=== PATIENT | male | born 1945 | race African-American/Black ===

== ENCOUNTER → 2017-01-03 | Outpatient (CLI) | payer MEDICARE | END | disposition home or self-care (01) | LOC: PCVCCLINIC 09:25 | PROVIDERS: ATTEND Internal Medicine Cardiovascular Disease | DX: I21.19 ST elevation (STEMI) myocardial infarction involving other coronary artery of inferior wall (principal); I42.9 Cardiomyopathy, unspecified; I25.10 Atherosclerotic heart disease of native coronary artery without angina pectoris; E78.00 Pure hypercholesterolemia, unspecified; Z88.8 Allergy status to other drugs, medicaments and biological substances; Z79.82 Long term (current) use of aspirin; Z87.891 Personal history of nicotine dependence | CPT/HCPCS: 36415; 80061; 93005; G0463 ==

== ENCOUNTER → 2017-04-23 | Outpatient (CLI) | payer MEDICARE | END | disposition home or self-care (01) | LOC: PCVCCLINIC 11:33 | PROVIDERS: ATTEND Internal Medicine Cardiovascular Disease | DX: I25.10 Atherosclerotic heart disease of native coronary artery without angina pectoris (principal); I21.9 Acute myocardial infarction, unspecified; I10 Essential (primary) hypertension; E78.00 Pure hypercholesterolemia, unspecified; Z88.8 Allergy status to other drugs, medicaments and biological substances; Z79.82 Long term (current) use of aspirin; Z79.899 Other long term (current) drug therapy; Z86.73 Personal history of transient ischemic attack (TIA), and cerebral infarction without residual deficits; Z87.891 Personal history of nicotine dependence | CPT/HCPCS: 93005; G0463 ==

== ENCOUNTER → 2017-11-26 | Outpatient (CLI) | payer MEDICARE | END | disposition home or self-care (01) | LOC: PCVCCLINIC 10:06 | DX: I25.10 Atherosclerotic heart disease of native coronary artery without angina pectoris (principal); I10 Essential (primary) hypertension; E78.00 Pure hypercholesterolemia, unspecified; Z87.891 Personal history of nicotine dependence; Z79.82 Long term (current) use of aspirin | CPT/HCPCS: 93005; G0463 ==

== ENCOUNTER → 2018-05-29 | Outpatient (CLI) | payer MEDICARE ==
--- NOTE | 2018-05-29 11:37 | PCVCIMAG ---
APPROVED REPORT Study performed: 05/29/2018 10:22:44 EXAM: Comprehensive 2D, Doppler, and color-flow Echocardiogram Patient Location: Echo lab Status: routine BSA: 2.24 HR: 56 bpmBP: 140/92 mmHg Rhythm: Bradycardia Other Information Study Quality: Adequate Indications CAD Cardiomyopathy hx of inferior GA 2D Dimensions IVSd: 14.29 (7-11mm) LVDd: 40.86 mm PWd: 13.71 (7-11mm)Ascending Ao: 36.05 (22-36mm) LVDs: 32.93 (25-40mm) Left Atrium: 39.00 (27-40mm) Aortic Root: 34.46 mm LV Single Plane 4CH: 17.05 % LV Single Plane 2CH: 36.50 % Volumes Left Atrial Volume (Systole) Single Plane 4CH: 76.46 mLSingle Plane 2CH: 82.39 mL LA ESV Index: 36.00 mL/m2 Aortic Valve AoV Peak Humphrey.: 1.25 m/s AO Peak Gr.: 6.25 mmHgLVOT Max P.05 mmHg LVOT Max V: 0.72 m/s Mitral Valve E/A Ratio: 0.9 MV Decel. Time: 353.36 ms MV E Max Humphrey.: 0.49 m/s MV A Humphrey.: 0.56 m/s IVRT: 183.39 ms Pulmonary Valve PV Peak Humphrey.: 0.92 m/sPV Peak Gr.: 3.37 mmHg Pulmonary Vein P Vein S: 0.23 m/sP Vein A: 0.24 m/s P Vein D: 0.29 m/sP Vein A Dur.: 121.1 msec P Vein S/D Ratio: 0.79 Tricuspid Valve TR Peak Humphrey.: 2.65 m/s TR Peak Gr.: 28.01 mmHg Left Ventricle The left ventricle is normal size. There is hypokinesis of the inferolateral segment. Mild concentric left ventricular hypertrophy. Left ventricular systolic function is moderately decreased. LVEF is 35-40%. Grade I - abnormal relaxation pattern. Right Ventricle The right ventricle is normal size. The right ventricular systolic function is normal. Atria Left atrium is mildly dilated. The right atrium size is normal. Aortic Valve The aortic valve is moderately sclerotic. Trace aortic regurgitation. There is no aortic valvular stenosis. Mitral Valve The mitral valve is normal in structure. Trace mitral regurgitation. No evidence of mitral valve stenosis. Tricuspid Valve The tricuspid valve is normal in structure. Mild tricuspid regurgitation with PAP of 35 mmHg. Pulmonic Valve The pulmonary valve is normal in structure. Mild pulmonic regurgitation. Great Vessels The aortic root is normal in size. IVC is normal in size and collapses >50% with inspiration. Pericardium There is no pericardial effusion. There is no pleural effusion. <Conclusion> The left ventricle is normal size. Mild concentric left ventricular hypertrophy. Left ventricular systolic function is moderately decreased. Grade I - abnormal relaxation pattern. The right ventricle is normal size. Left atrium is mildly dilated. The aortic valve is moderately sclerotic. Trace aortic regurgitation. Trace mitral regurgitation. Mild tricuspid regurgitation with PAP of 35 mmHg.
== END | disposition home or self-care (01) ==
LOC: PCVCIMAG 10:17
PROVIDERS: ATTEND Internal Medicine Cardiovascular Disease
DX: I25.10 Atherosclerotic heart disease of native coronary artery without angina pectoris (principal); I07.1 Rheumatic tricuspid insufficiency; E78.00 Pure hypercholesterolemia, unspecified; I12.9 Hypertensive chronic kidney disease with stage 1 through stage 4 chronic kidney disease, or unspecified chronic kidney disease; N18.9 Chronic kidney disease, unspecified; Z79.82 Long term (current) use of aspirin
CPT/HCPCS: 93005; 93306; G0463

== ENCOUNTER → 2018-12-01 | Outpatient (CLI) | payer MEDICARE | END | disposition home or self-care (01) | LOC: PCVCCLINIC 13:20 | PROVIDERS: ATTEND Internal Medicine Cardiovascular Disease | DX: I25.10 Atherosclerotic heart disease of native coronary artery without angina pectoris (principal); R42 Dizziness and giddiness; I42.9 Cardiomyopathy, unspecified; E78.00 Pure hypercholesterolemia, unspecified; I12.9 Hypertensive chronic kidney disease with stage 1 through stage 4 chronic kidney disease, or unspecified chronic kidney disease; N18.9 Chronic kidney disease, unspecified; M10.9 Gout, unspecified; Z79.82 Long term (current) use of aspirin; Z88.8 Allergy status to other drugs, medicaments and biological substances | CPT/HCPCS: 93005; G0463 ==

== ENCOUNTER → 2018-12-17 | Outpatient (CLI) | payer MEDICARE ==
[~2018-12-17] MED LIST: REGADENOSON 0.4 MG/5 ML DISP.SYRIN. IV ONE
--- NOTE | 2018-12-17 14:28 | PCVCIMAG ---
APPROVED REPORT Imaging Protocol: Rest Tc-99m/Stress Tc-99m 1 day Study performed: 12/17/2018 09:08:19 Indication: CAD , Cardiomyopathy, Dizziness Patient Location: Out-Patient Stress Nurse: Tiffanie Hensley RN, Autumn Cherry RN OR Tech:Della Roby [facility] Ht: 6 ft 1 in Wt: 218 lbs BSA: 2.23 m2 HR: 66 bpm BP: 168/88 mmHg BMI: 28.75 Rhythm: Sinus Rhythm, nonspecific ST-T abnormalities Medical History Medical History: Hyperlipidemia, HTN, Former Smoker Medications: ASA, Atorvastatin, Losartan Allergies: Lisinoprill, Brillinta Cardiac Risk Factors: Age Previous Cardiac Procedures: 2014 PCI - Prox LAD, 2016 Inf ID and RCA Stent Pretest Chest Pain Characteristics: No chest pain Exercise History: Sedentary Resting Data Rest SPECT myocardial perfusion imaging was performed in supine position 45 minutes following the intravenous injection of 10.7 mCi of Tc-99m Sestamibi. Time of rest injection: 914 Date: 12/17/2018 Administration Route: IV Administration Site: Left Arm Pharmacologic Stress Pharmacologic stress test was performed by injecting Regadenoson 0.4 mg IV push over 10-15 seconds immediately followed by the intravenous injection of 32.9 mCi of Tc-99m Sestamibi. Time of stress injection: 1014 Date: 12/17/2018 Administration Route: IV Administration Site: Left Arm Gated Stress SPECT was performed 45 minutes after stress injection. The images were gated to evaluate regional wall motion and calculate left ventricular ejection fraction. Stress Test Details Stress Test: Pharmacologic stress testing performed using 0.4 mg of regadenoson per 5 mL given IV over 10 seconds. Reason for pharmacologic stress test: physical limitation, uses a cane. HRMax Heart Rate (APMHR): 148 bpm Resting HR: 66 bpmTarget HR (85% APMHR): 125 bpm Max HR Achieved: 100 bpm % of APMHR: 67 Recovery HR: 97 bpm BP Resting BP: 168/88 mmHg Max BP: 174/93 mmHg Recovery BP: 144/73 mmHg ECG Resting ECG: Sinus Rhythm, nonspecific ST-T abnormalities Stress ECG: Sinus Tachycardia, nonspecific ST-T abnormalities ST Change: Non-ischemic Arrhythmia: PVC's Recovery ECG: Sinus Rhythm, nonspecific ST-T abnormalities Clinical Reason for Termination: Completed protocol Stress Symptoms: Dyspnea Exercise duration: 0 min 55 sec Symptoms resolved with caffeine. Study Quality Study: Good Study Data Post stress, the left ventricular ejection was 47%.. SSS: 9 SRS: 12 SDS: 0 TID = 0.95. Perfusion There is a medium area of mildly reduced uptake in the mid and apical segment of the inferolateral wall which is seen on the stress images as well as the resting images. This area is hypokinetic and is most consistent with myocardial scar. Wall Motion Mildly decreased left ventricular systolic function. Nuclear Conclusion ECG Findings: negative for ischemia Clinical Findings: non-diagnostic Nuclear Findings: positive for nontransmural infarct Exercise Capacity: not assessed Left Ventricular Function: abnormal There is a nontransmural infarct involving the mid to distal inferolateral segment. This study is of low probability for inducible ischemia. There is mild LV dysfunction, EF 47%.
== END | disposition home or self-care (01) ==
LOC: PCVCIMAG 08:51
PROVIDERS: ATTEND Internal Medicine Cardiovascular Disease
DX: I25.10 Atherosclerotic heart disease of native coronary artery without angina pectoris (principal); R42 Dizziness and giddiness; I10 Essential (primary) hypertension; E78.00 Pure hypercholesterolemia, unspecified; I42.9 Cardiomyopathy, unspecified; E78.5 Hyperlipidemia, unspecified; Z87.891 Personal history of nicotine dependence
CPT/HCPCS: 78452; 93017; A9500; G0463; J2785